=== PATIENT | male | born 1935 | race Caucasian/White ===

== ENCOUNTER 2019-05-21 13:12 | Emergency (ER) | payer MEDICARE, OTHER ==
[~2019-05-21] VITALS: Ht 177.8 cm; Wt 89.2 kg
[2019-05-21 13:27] VITALS: Ht 177.8 cm; Wt 89.2 kg
[2019-05-21] MEDS ORDERED: SOD CHLORIDE 0.9% 500 ML IV STA (16:10)
[2019-05-21] MEDS ORDERED: METOCLOPRAMIDE 10 MG INJ IV STA (16:10)
[2019-05-21] MEDS ORDERED: GABA100C14 PO (16:34)
[2019-05-21] MEDS ORDERED: SIMV20TA PO (16:35)
[2019-05-21] MEDS ORDERED: MECL-77 PO (16:35)
[2019-05-21] MEDS ORDERED: AMLO-147 PO (16:36)
[2019-05-21] MEDS ORDERED: OMEP20CA16 PO (16:36)
[2019-05-21] MEDS ORDERED: METF100010 PO (16:36)
[2019-05-21] MEDS ORDERED: RIVA20TA5 PO (16:37)
--- NOTE | 2019-05-21 19:07 | ERD ---
ER Documentation Chief Complaint Chief Complaint headache since last night , no neuro deficits , rt leg pain HPI 84 year old male on blood thinners presenting with complaints of headache on and off over the past week, worse last night. Headache is bitemporal, nonradiating, 10/10, pressure like, without any associated symptoms. No alleviating or exacerbating factors. Denies vision disturbance, nausea, vomiting, focal weakness or numbness, or gait disturbance. He states he has bilateral knee pain secondary from arthritis which is chronic. Denies CP, SOB, melena, hematochezia. ROS All systems reviewed and are negative except as per history of present illness. Medications Home Meds Reported Medications Rivaroxaban* (Xarelto*) 20 Mg Tablet, 20 MG PO WITH DINNER, TAB 05/21/19 Metformin Hcl* (Metformin Hcl*) 1,000 Mg Tablet, 1000 MG PO WITH BREAKFAST DINNE, #60 TAB 05/21/19 Amlodipine Besylate* (Amlodipine Besylate*) 10 Mg Tablet, 10 MG PO DAILY, #30 TAB 05/21/19 Omeprazole* (Omeprazole*) 20 Mg Capsule.dr, 20 MG PO DAILY, #30 CAP 05/21/19 Simvastatin* (Zocor*) 20 Mg Tablet, 20 MG PO QHS, #30 TAB 05/21/19 Meclizine Hcl* (Meclizine Hcl*) 25 Mg Tablet, 25 MG PO Q6H PRN for DIZZINESS, TAB 05/21/19 Gabapentin* (Gabapentin*) 100 Mg Capsule, 200 MG PO BID, #180 CAP 05/21/19 Allergies Allergies: Coded Allergies: Penicillins (Unverified Allergy, Unknown, 05/21/19) PMhx/Soc History of Surgery: Yes (pacemaker, gallbladder removal, hernia repair) Hx Neurological Disorder: Yes (CVA) Hx Cardiac Disorders: Yes (htn, ) Hx Psychiatric Problems: No Hx Miscellaneous Medical Probl: No Hx Alcohol Use: No Hx Substance Use: No Hx Tobacco Use: No Smoking Status: Never smoker FmHx Family History: No diabetes Physical Exam Vitals Vital Signs Date Temp Pulse Resp B/P (MAP) Pulse Ox O2 O2 Flow FiO2 Time Delivery Rate 05/21/19 97.9 73 19 132/76 99 Room Air 19:25 (94) 05/21/19 97.6 68 14 139/71 98 Room Air 18:30 (93) 05/21/19 77 18 116/79 99 Room Air 17:45 (91) 05/21/19 97.9 70 18 120/57 99 13:27 (78) Physical Exam Const: No acute distress Head: Atraumatic Eyes: Normal Conjunctiva, right pupil irregular, non reactive (hx of injury). Left pupil midsized, reactive to light. EOMI ENT: Normal External Ears, Nose and Mouth. Neck: Full range of motion. No meningismus. Resp: Clear to auscultation bilaterally Cardio: Regular rate and rhythm, no murmurs Abd: Soft, non tender, non distended. Normal bowel sounds Skin: No petechiae or rashes Back: No midline or flank tenderness Ext: No cyanosis, or edema. No calf tenderness. No joint swelling or overlying erythema Neur: Awake and alert, oriented x3, normal speech, no facial asymmetry. Strength and sensations intact in all 4 extremities. Psych: Normal Mood and Affect Result Diagram: 05/21/19 1625 05/21/19 1625 Results 24 hrs Laboratory Tests Test 05/21/19 16:25 White Blood Count 10.6 10^3/ul Red Blood Count 4.24 10^6/ul Hemoglobin 9.8 g/dl Hematocrit 32.1 % Mean Corpuscular Volume 75.7 fl Mean Corpuscular Hemoglobin 23.1 pg Mean Corpuscular Hemoglobin Concent 30.5 g/dl Red Cell Distribution Width 17.2 % Platelet Count 538 10^3/UL Mean Platelet Volume 11.0 fl Immature Granulocytes % 0.200 % Neutrophils % 63.0 % Lymphocytes % 22.2 % Monocytes % 8.0 % Eosinophils % 5.5 % Basophils % 1.1 % Nucleated Red Blood Cells % 0.0 /100WBC Immature Granulocytes # 0.020 10^3/ul Neutrophils # 6.7 10^3/ul Lymphocytes # 2.3 10^3/ul Monocytes # 0.9 10^3/ul Eosinophils # 0.6 10^3/ul Basophils # 0.1 10^3/ul Nucleated Red Blood Cells # 0.0 10^3/ul Erythrocyte Sedimentation Rate 15 mm/Hr Prothrombin Time 15.4 Sec Prothrombin Time Ratio 1.2 INR International Normalized Ratio 1.21 Activated Partial Thromboplast Time 35.9 Sec Sodium Level 136 mmol/L Potassium Level 4.8 mmol/L Chloride Level 99 mmol/L Carbon Dioxide Level 26 mmol/L Anion Gap 11 Blood Urea Nitrogen 24 mg/dl Creatinine 0.83 mg/dl Est Glomerular Filtrat Rate mL/min mL/min Glucose Level 92 mg/dl Calcium Level 9.5 mg/dl Current Medications Medications Dose Sig/Raymond Start Time Status Last (Trade) Ordered Route PRN Stop Time Admin Dose Reason Admin Sodium 500 ml @ Q1H STAT 05/21/19 DC 05/21/19 Chloride 500 mls/hr IV 16:10 16:26 05/21/19 17:09 10 mg ONCE STAT 05/21/19 DC 05/21/19 Metoclopramid IV 16:10 16:26 e HCl 05/21/19 16:12 (Reglan) Procedures/MDM LABS REVIEWED: Notable for thrombocytosis, unclear etiology. Mild anemia. Mild BUN elevation, possibly due to dehydration. Labs otherwise unremarkable. IMAGING REVIEWED: CT Head: no acute abnormalities,no obvious masses per radiology read MDM Patient presented with headache, neurovascularly intact. Given age and history of blood thinner use with associated new onset headache, CT head was ordered and did not show any evidence of bleeding, increased ICP, hydrocephalus or recent stroke. Low suspicion for SAH or meningitis. Patient improved with IVF and IV Reglan. His headache resolved upon reevaluation. I feel he is stable for d/c at this time with recommendation for outpatient followup for further workup of new onset headaches.I do not feel he requires admission for this. Return precautions given. All questions answered. Departure Diagnosis: Primary Impression: Headache Headache type: tension-type Headache chronicity pattern: episodic headache Intractability: not intractable Qualified Codes: G44.219 - Episodic tension-type headache, not intractable Condition: Stable Patient Instructions: Self-Care for Headaches Referrals: DOCTOR,NOT ON STAFF (PCP) Additional Instructions: [facility] best kimmy con [place] [facility]. Es posible que necesitas mas examines. Si estas empeorando, regresa a la roque de emergencias. PIERO DIANA MD May 21, 2019 19:07
[2019-05-21 19:25] VITALS: BP 132/76; PULSE 73; RESP 19
== END 2019-05-21 19:25 | disposition home or self-care (01) ==
LOC: E/R 13:12
DX: G44.219 Episodic tension-type headache, not intractable (principal); I10 Essential (primary) hypertension; R40.2142 Coma scale, eyes open, spontaneous, at arrival to emergency department; R40.2362 Coma scale, best motor response, obeys commands, at arrival to emergency department; R40.2252 Coma scale, best verbal response, oriented, at arrival to emergency department; Z86.73 Personal history of transient ischemic attack (TIA), and cerebral infarction without residual deficits; Z95.0 Presence of cardiac pacemaker; Z79.84 Long term (current) use of oral hypoglycemic drugs
CPT/HCPCS: 36415; 70450; 80048; 85025; 85610; 85651; 85730; 96374; 99285; J2765; J7040